=== PATIENT | female | born 1960 | race Hispanic/Latino ===

== ENCOUNTER 2018-06-05 07:37 | Day surgery (SDC) | payer OTHER ==
[2018-06-05] MEDS ORDERED: Midazolam 2 MG/2 ML VIAL ONE (07:49)
[2018-06-05] MEDS ORDERED: Etomidate 20 mg/10ml Inj IV ONE (07:49)
[2018-06-05] MEDS ORDERED: Propofol 10 mg/ml Inj (20 ML) ONE (09:23)
[2018-06-05] MEDS ORDERED: Sodium Chloride 0.9% 1,000 ML IV SCH (09:45)
[2018-06-05 09:57] VITALS: O2SAT 100
[2018-06-05 10:27] VITALS: BP 123/73; PULSE 83; RESP 16; TEMP 97.8
== END 2018-06-05 10:58 | disposition home or self-care (01) ==
LOC: ENDO 07:37
PROVIDERS: ATTEND Internal Medicine Gastroenterology
DX: K21.0 Gastro-esophageal reflux disease with esophagitis (principal); K29.50 Unspecified chronic gastritis without bleeding; K44.9 Diaphragmatic hernia without obstruction or gangrene; R13.10 Dysphagia, unspecified
CPT/HCPCS: 43239; 82948; 88305; 88312; 88342; J2250; J2704; J3010; J7030; J7040

== ENCOUNTER 2018-08-30 08:36 | Day surgery (SDC) | payer OTHER ==
[~2018-08-30 08:36] MED LIST: Lactated Ringer's 1,000 ML IV SCH
[2018-08-30] MEDS ORDERED: Propofol 10 mg/ml Inj (20 ML) ONE (08:43)
[2018-08-30 11:54] VITALS: BP 121/66; PULSE 63; RESP 18; TEMP 97.3; O2SAT 99
== END 2018-08-30 12:09 | disposition home or self-care (01) ==
LOC: ENDO 08:36
PROVIDERS: ATTEND Internal Medicine Gastroenterology
DX: Z12.11 Encounter for screening for malignant neoplasm of colon (principal); K57.30 Diverticulosis of large intestine without perforation or abscess without bleeding; K64.8 Other hemorrhoids; K20.9 Esophagitis, unspecified; K44.9 Diaphragmatic hernia without obstruction or gangrene; K31.7 Polyp of stomach and duodenum
CPT/HCPCS: 43239; 45378; 82948; 88305; 88312; 88342; J2704; J7120